=== PATIENT | male | born 1975 | race Caucasian/White ===

== ENCOUNTER 2020-06-14 15:00 | Emergency (ER) | payer MEDICAID ==
[~2020-06-14] VITALS: Ht 175.3 cm; Wt 145.0 kg
[2020-06-14] MEDS ORDERED: IBUP-1007 PO (16:25)
[2020-06-14] MEDS ORDERED: AMOX1TAB61 PO (16:25)
--- NOTE | 2020-06-14 16:27 | PHYS DOC ---
General Adult EDM: Chief Complaint: DENTAL PROBLEM HPI: HPI: Patient is a 44 year old male reports to the emergency department today complaining of left upper front dental pain for the past 2 days. Patient states that it had broken 2 years ago and he thought the nerve was and he had not really had any problems with it until 2 days ago. Patient states that he is making an appointment today to see a dentist. Patient denies smoking cigarettes, denies illicit drug use, denies alcohol use. Patient denies any other physical complaints or physical illnesses. Review of Systems: Review of Systems: 14 body systems of review of systems have been reviewed. See HPI for pertinent positives and negative responses, otherwise all other systems are negative, nonpertinent or noncontributory. Heart Score: Risk Factors: Risk Factors: DM, Current or recent (<one month) smoker, HTN, HLP, family history of CAD, obesity. Risk Scores: Score 0 - 3: 2.5% MACE over next 6 weeks - Discharge Home Score 4 - 6: 20.3% MACE over next 6 weeks - Admit for Clinical Observation Score 7 - 10: 72.7% MACE over next 6 weeks - Early Invasive Strategies Current Medications: Patient denies taking prescription or zmcl-krs-dckylol medications. Allergies: Allergies: Patient denies allergies to medications. Physical Exam: PE: Constitutional: Well developed, well nourished, no acute distress, non-toxic appearance. HENT: Normocephalic, atraumatic, bilateral external ears normal, oropharynx moist, no oral exudates, nose normal. Patient has multiple decayed teeth, poor dentition, marked dental caries, broken teeth. Patient's central incisor #9 broken at the gumline, pulp exposed, no purulent drainage from tooth, no erythema to surrounding gum structure. Eyes: PERRLA, EOMI, conjunctiva normal, no discharge. Neck: Normal range of motion, no tenderness, supple, no stridor. Cardiovascular:Heart rate regular rhythm, no murmur Lungs & Thorax: Bilateral breath sounds clear to auscultation Abdomen: Bowel sounds normal, soft, no tenderness, no masses, no pulsatile masses. Skin: Warm, dry, no erythema, no rash. Back: No tenderness, no CVA tenderness. Extremities: No tenderness, no cyanosis, no clubbing, ROM intact, no edema. Neurologic: Alert and oriented X 3, normal motor function, normal sensory function, no focal deficits noted. Psychologic: Affect normal, judgement normal, mood normal. EKG: EKG: [] Radiology/Procedures: Radiology/Procedures: [] Course & Med Decision Making: Course & Med Decision Making Pertinent Labs and Imaging studies reviewed. (See chart for details) 44-year-old male, vital signs reviewed, physical exam of complaint tooth central incisor #9 consistent with pulpitis. Discussed findings with patient, will start on Augmentin p.o. twice daily x10 days.patient given pain medicine in the emergency department related to 10/10 pain on a 1-10 pain scale, first antibiotics Augmentin p.o. Prescription for ibuprofen and Augmentin, patient gave verbal understanding of discharge instructions, follow-up with dentist soon, had no further questions or concerns, gave verbal understanding of return to emergency department concerns, discharged home without incident Impression: 1. Pulpitis 2 dental caries Steph Disclaimer: Steph Disclaimer: This electronic medical record was generated, in whole or in part, using a voice recognition dictation system. Departure Departure Impression: Primary Impression: Pulpitis Additional Impression: Dental caries Disposition: 01 DC HOME SELF CARE/HOMELESS Condition: GOOD Referrals: NO PCP (PCP) Patient Instructions: Dental Abscess Additional Instructions: Take prescribed medications as directed, follow-up with your dentist soon, return to the emergency department for worsening symptoms or other concerns. EMERGENCY DEPARTMENT GENERAL DISCHARGE INSTRUCTIONS Thank you for coming to [facility] Emergency Department (ED) today and trusting us with you care. We trust that you had a positive experience in our Emergency Department. If you wish to speak to the department management, you may call the Director at [phone]. YOUR FOLLOW UP INSTRUCTIONS ARE FOLLOWS: 1. Do you have a private Doctor? If you do not have a private doctor, please ask for a resource list of physicians or clinics that may be able to assist you with follow up care. 2. The Emergency Physicain has interpreted your x-rays. The X-Ray specialist will also review them. If there is a change in the findings, you will be notified in 48 hours when at all possible. 3. A lab test or culture has been done, your results will be reviewed and you will be notified if you need a change in treatment. ADDITIONAL INSTRUCTIONS AND INFORMATION: 1. Your care today has been supervised by a physician who is specially trained in emergency care. Many problems require more than one evaluation for a complete diagnosis and treatment. We recommend that you schedule your follow up appointment as recommended to ensure complete treatment of you illness or injury. If you are unable to obtain follow up care and continue to have a problem, or if your condition worsens, we recommend that you return to the ED. 2. We are not able to safely determine your condition over the phone nor are we able to give sound medical advice over the phone. For these safety reasons, if you call for medical advice we will ask you to come to the ED for further evaluation. 3. If you have any questions regarding these discharge instructions please call the ED at [phone]. SAFETY INFORMATION: In the interest of safety, wellness, and injury prevention; we encourage you to wear your sealbelt, if you smoke; quite smoking, and we encourage family to use a protective helmet for bicycling and other sporting events that present an increased risk for head injury. IF YOUR SYMPTOMS WORSEN OR NEW SYMPTOMS DEVELOP, OR YOU HAVE CONCERNS ABOUT YOUR CONDITION; OR IF YOUR CONDITION WORSENS WHILE YOU ARE WAITING FOR YOUR FOLLOW UP APPOINTMENT; EITHER CONTACT YOUR PRIMARY CARE DOCTOR, THE PHYSICIAN WHOSE NAME AND NUMBER YOU WERE GIVEN, OR RETURN TO THE ED IMMEDIATELY. Scripts Ibuprofen (IBUPROFEN) 600 Mg Tablet 600 MG PO PRN Q6HRS PRN for INFLAMMATION, #30 TAB 0 Refills Prov: ULISES STAUFFER CHIEF CATALYST OPERATOR 06/14/20 Amoxicillin/Potassium Clav (AUGMENTIN 875-125 TABLET) 1 Each Tablet 1 TAB PO BID for TOOTH INFECTION for 10 Days, #20 TAB 0 Refills Prov: ULISES STAUFFER CHIEF CATALYST OPERATOR 06/14/20 ULISES STAUFFER APRN Jun 14, 2020 16:27
[2020-06-14] MEDS ORDERED: HYDROcodone/APAP 5/325MG 1 TAB TABLET PO ONE (16:45)
[2020-06-14] MEDS ORDERED: AMOXICILLIN/K CLAV 875/125MG TABLET. PO ONE (16:45)
[2020-06-14] MEDS ORDERED: KETOROLAC 60 MG/2 ML VIAL. IM ONE (16:45)
[2020-06-14 16:55] VITALS: BP 148/98
[2020-06-15] MEDS ORDERED: CODE30TA PO (10:03)
== END 2020-06-14 16:58 | disposition home or self-care (01) ==
LOC: ER 15:00
DX: K02.9 Dental caries, unspecified (principal); K04.01 Reversible pulpitis; K08.89 Other specified disorders of teeth and supporting structures
CPT/HCPCS: 96372; 99283; J1885

== ENCOUNTER 2020-06-15 09:05 | Emergency (ER) | payer MEDICAID ==
[~2020-06-15] VITALS: Ht 175.3 cm; Wt 150.0 kg
[~2020-06-15 09:05] MED LIST: AMOX1TAB61 PO; IBUP-1007 PO
[2020-06-15 09:55] VITALS: BP 168/100
[2020-06-15] MEDS ORDERED: HYDROcodone/APAP 5/325MG 1 TAB TABLET PO ONE (10:00)
[2020-06-15] MEDS ORDERED: CODE30TA PO (10:03)
--- NOTE | 2020-06-15 10:04 | PHYS DOC ---
Past Medical History Past Medical History: Other Additional Past Medical Histor: ADD Past Surgical History: Appendectomy, Cholecystectomy Additional Past Surgical Histo: carpal tunnel, Smoking Status: Never Smoker Alcohol Use: Rarely General Adult EDM: Chief Complaint: DENTAL PROBLEM HPI: HPI: Patient is a 44 year old male who presents to the ED today complaining of moderate left upper gum dental pain, symptoms began 3 days ago. Patient describes the pain as sharp and constant. He states he has tried taking ibuprofen as prescribed with no improvement. He states he was in the ED yesterday for the same complaint and was given prescription for Augmentin which he has taken with no improvement. He states he has an appointment with the dentist tomorrow. Patient denies any fever or trismus. He is begging for pain medicine stating ibuprofen is not working he states he could not sleep last night and his mom wanted him to come to the ED to be examined Review of Systems: Review of Systems: Constitutional: Denies fever or chills. [] HENT: Reports left upper gum dental pain. Denies nasal congestion or sore throat. [] Musculoskeletal: Denies back pain or joint pain. [] Integument: Denies rash. [] Neurologic: Denies headache, focal weakness or sensory changes. [] Psychiatric: Denies depression or anxiety. [] Heart Score: Risk Factors: Risk Factors: DM, Current or recent (<one month) smoker, HTN, HLP, family history of CAD, obesity. Risk Scores: Score 0 - 3: 2.5% MACE over next 6 weeks - Discharge Home Score 4 - 6: 20.3% MACE over next 6 weeks - Admit for Clinical Observation Score 7 - 10: 72.7% MACE over next 6 weeks - Early Invasive Strategies Allergies: Allergies: Allergies Coded Allergies Type Severity Reaction Last Updated Verified No Known Drug Allergies 06/14/20 No Physical Exam: PE: Constitutional: Well developed, well nourished, no acute distress, non-toxic appearance. [] HENT: Normocephalic, atraumatic, bilateral external ears normal, oropharynx moist, no oral exudates, nose normal. [] Tooth #10 is broken and decayed. Tooth on the left upper gum the molars and premolars appear to have dental caries. There is slight erythema to the left upper gums. There is slight swelling to the left upper cheek. No drainable abscess noted. Skin: Warm, dry, no erythema, no rash. [] Back: No tenderness, no CVA tenderness. [] Extremities: No tenderness, no cyanosis, no clubbing, ROM intact, no edema. [] Neurologic: Alert and oriented X 3, normal motor function, normal sensory function, no focal deficits noted. [] Psychologic: Affect normal, judgement normal, mood normal. [] EKG: EKG: [] Radiology/Procedures: Radiology/Procedures: [] Course & Med Decision Making: Course & Med Decision Making Pertinent Labs and Imaging studies reviewed. (See chart for details) This is a 44-year-old male patient presenting to the ED today with a dental abscess, patient was in the ED yesterday and started on Augmentin. He has a dentist appointment tomorrow. He was given 2 hydrocodone tablets and discharged to home with Codeine to take with Ibuprofen and Tylenol 1319 patient called stating he can not fill his RX for codeine because no phar viry has it. I told him he can take Tylenol or Ibuprofen and has an appointment with his dentist tomorrow. He unfortunately stated yelling stating "why would you write me a fucking prescription that no fucking pharmacy can fill" and continued to use fowl language. I hanged up the phone. Steph Disclaimer: Steph Disclaimer: This electronic medical record was generated, in whole or in part, using a voice recognition dictation system. Departure Departure Impression: Primary Impression: Dental abscess Disposition: 01 DC HOME SELF CARE/HOMELESS Condition: STABLE Referrals: NO PCP (PCP) Follow-up with your dentist Patient Instructions: Dental Abscess Additional Instructions: You have a dental abscess. Please take the medicines prescribed as ordered. Complete antibiotics you have see your dentist tomorrow Scripts Codeine Sulfate (CODEINE SULFATE) 30 Mg Tablet 30 MG PO Q6-8HRS PRN for SEVERE PAIN 7-10, #6 TAB Prov: RADHA MARTINEZ APRN 06/15/20 RADHA MARTINEZ APRN Jun 15, 2020 10:04
== END 2020-06-15 10:29 | disposition home or self-care (01) ==
LOC: ER 09:05
DX: K04.7 Periapical abscess without sinus (principal); R60.0 Localized edema; L53.9 Erythematous condition, unspecified; Z90.49 Acquired absence of other specified parts of digestive tract; Z90.89 Acquired absence of other organs; Z98.890 Other specified postprocedural states
CPT/HCPCS: 99283

== ENCOUNTER 2020-10-26 09:35 | Emergency (ER) | payer MEDICAID ==
[~2020-10-26] VITALS: Ht 175.3 cm; Wt 150.0 kg
[~2020-10-26 09:35] MED LIST changes: +CODE30TA PO
[2020-10-26] MEDS ORDERED: NOREPINEPHRINE VIAL 8 MG in IV DEXTROSE 5% 250 ML IV PRN (10:00)
[2020-10-26] MEDS ORDERED: IV NORMAL SALINE 500ML BAG 500 ML IV PRN (10:00)
--- NOTE | 2020-10-26 10:06 | ED.ADGEN ---
Past Medical History Past Medical History: No Pertinent History Additional Past Medical Histor: ADD Past Surgical History: No Surgical History Additional Past Surgical Histo: carpal tunnel, Smoking Status: Never Smoker Alcohol Use: None General Adult EDM: Chief Complaint: MULTIPLE COMPLAINTS HPI: HPI: Patient is a 45-year-old male who arrives ambulatory to the emergency department complaining of progressive shortness of air over the past 2 to 3 days. Patient reports during this time he has become increasing more short of breath with any kind of activity. Patient states he has found it difficult to sleep and states he has the sensation his airway is closing at night. Patient started using wrea-ydw-yuvvrca medications thinking it might help him however he has not a chieved any relief. Patient also reports to some chest heaviness that has accompanied his shortness of air during this time. He denies any fever. He further denies any coughing and states he has not been in close contact with anybody who has been ill. Furthermore he denies having taken the coronavirus vaccine and does not have any known cardiac or respiratory illnesses. He is awake, alert and uncomfortable appearing Review of Systems: Review of Systems: Constitutional: Denies fever or chills. [] Eyes: Denies change in visual acuity. [] HENT: Denies nasal congestion or sore throat. [] Respiratory: Reports shortness of air with exertion and at rest. Denies cough. [] Cardiovascular: Reports chest discomfort. [] GI: Denies abdominal pain, nausea, vomiting, bloody stools or diarrhea. [] : Denies dysuria. [] Musculoskeletal: Denies back pain or joint pain. [] Integument: Denies rash. [] Neurologic: Denies headache, focal weakness or sensory changes. [] Endocrine: Denies polyuria or polydipsia. [] Lymphatic: Denies swollen glands. [] Psychiatric: Denies depression or anxiety. [] Current Medications: Current Medications Medications (Trade) Dose Ordered Sig/Pradeep Start Time Stop Time Status Last Admin Dose Admin Dobutamine HCl/ Dextrose 250 ml @ 0 mls/hr CONT PRN 10/26/20 10:00 10/26/20 14:04 DC Info (CONTRAST GIVEN -- Rx MONITORING) 1 each PRN DAILY PRN 10/26/20 12:30 10/26/20 14:04 DC Iohexol (Omnipaque 350 Mg/ml) 100 ml 1X ONCE 10/26/20 12:30 10/26/20 12:31 DC 10/26/20 12:29 100 ML Levofloxacin/ Dextrose 150 ml @ 100 mls/hr Q24H 10/26/20 10:00 10/26/20 14:04 DC 10/26/20 10:54 100 MLS/HR Norepinephrine Bitartrate 8 mg/ Dextrose 258 ml @ 0 mls/hr CONT PRN 10/26/20 10:00 10/26/20 14:04 DC Sodium Chloride 500 ml @ 1,000 mls/hr PRN Q30MIN PRN 10/26/20 10:00 10/26/20 14:04 DC 10/26/20 10:54 1,000 MLS/HR Allergies: Allergies: Allergies Coded Allergies Type Severity Reaction Last Updated Verified No Known Drug Allergies 06/14/20 No Physical Exam: PE: Constitutional: Obese and uncomfortable appearing. Well developed, well nourished, non-toxic appearance. [] HENT: Normocephalic, atraumatic, bilateral external ears normal, oropharynx moist, no oral exudates, nose normal. [] Eyes: PERRLA, EOMI, conjunctiva normal, no discharge. [] Neck: Normal range of motion, no tenderness, supple, no stridor. [] Cardiovascular:Heart rate regular rhythm, no murmur [] Lungs & Thorax: Breathing is shallow and tachypneic. Bilateral breath sounds are otherwise clear to auscultation [] Abdomen: Bowel sounds normal, soft, no tenderness, no masses, no pulsatile masses. [] Skin: Warm, dry, no erythema, no rash. [] Back: No tenderness, no CVA tenderness. [] Extremities: No tenderness, no cyanosis, no clubbing, ROM intact, no edema. [] Neurologic: Alert and oriented X 3, normal motor function, normal sensory function, no focal deficits noted. [] Psychologic: Affect normal, judgement normal, mood normal. [] Current Patient Data: Labs: Laboratory Tests Test 10/26/20 09:44 10/26/20 10:00 10/26/20 10:10 10/26/20 10:32 Sodium Level 140 mmol/L (136-145) Potassium Level 4.2 mmol/L (3.5-5.1) Chloride Level 104 mmol/L (98-107) Carbon Dioxide Level 25 mmol/L (21-32) Anion Gap 11 (6-14) Blood Urea Nitrogen 10 mg/dL (8-26) Creatinine 0.7 mg/dL (0.7-1.3) Estimated GFR (Cockcroft-Gault) 122.0 Glucose Level 121 mg/dL (70-99) H Calcium Level 8.7 mg/dL (8.5-10.1) Total Bilirubin 0.4 mg/dL (0.2-1.0) Direct Bilirubin 0.1 mg/dL (0.0-0.2) Aspartate Amino Transferase (AST) 64 U/L (15-37) H Alanine Aminotransferase (ALT) 98 U/L (16-63) H Alkaline Phosphatase 85 U/L (46-116) Troponin I Quantitative < 0.017 ng/mL (0.000-0.055) IJ-Bnv-Q-Type Natriuretic Peptide 14 pg/mL (0-124) Total Protein 7.5 g/dL (6.4-8.2) Albumin 3.8 g/dL (3.4-5.0) Procalcitonin < 0.10 ng/mL (0.00-0.10) White Blood Count 9.3 x10^3/uL (4.0-11.0) Red Blood Count 4.80 x10^6/uL (4.30-5.70) Hemoglobin 14.1 g/dL (13.0-17.5) Hematocrit 41.8 % (39.0-53.0) Mean Corpuscular Volume 87 fL (79-100) Mean Corpuscular Hemoglobin 29 pg (25-35) Mean Corpuscular Hemoglobin Concent 34 g/dL (31-37) Red Cell Distribution Width 15.2 % (11.5-14.5) H Platelet Count 354 x10^3/uL (140-400) Neutrophils (%) (Auto) 55 % (31-73) Lymphocytes (%) (Auto) 33 % (24-48) Monocytes (%) (Auto) 10 % (0-9) H Eosinophils (%) (Auto) 1 % (0-3) Basophils (%) (Auto) 1 % (0-3) Neutrophils # (Auto) 5.1 x10^3/uL (1.8-7.7) Lymphocytes # (Auto) 3.0 x10^3/uL (1.0-4.8) Monocytes # (Auto) 0.9 x10^3/uL (0.0-1.1) Eosinophils # (Auto) 0.1 x10^3/uL (0.0-0.7) Basophils # (Auto) 0.1 x10^3/uL (0.0-0.2) Lactic Acid Level 1.1 mmol/L (0.4-2.0) Laboratory Tests 10/26/20 10:10 Laboratory Tests 10/26/20 09:44 Vital Signs: Vital Signs Date Time Temp Pulse Resp B/P (MAP) Pulse Ox O2 Delivery O2 Flow Rate FiO2 10/26/20 09:40 98.6 101 18 188/91 (123) 96 Room Air 98.6 EKG: EKG: [] EKG was obtained at 9:49 AM and revealed a normal sinus rhythm with a ventricular rate of 9 9 bpm. There is no acute ST/T wave changes to denote ischemia. Heart Score: C/O Chest Pain: Yes HEART Score for Chest Pain: HEART Score for Chest Pain Response (Comments) Value History Slighlty/Non-Suspicious 0 ECG Normal 0 Age >45 - < 65 1 Risk Factors 1 or 2 Risk Factors 1 Troponin < Normal Limit 0 Total 2 Risk Factors: Risk Factors: DM, Current or recent (<one month) smoker, HTN, HLP, family history of CAD, obesity. Risk Scores: Score 0 - 3: 2.5% MACE over next 6 weeks - Discharge Home Score 4 - 6: 20.3% MACE over next 6 weeks - Admit for Clinical Observation Score 7 - 10: 72.7% MACE over next 6 weeks - Early Invasive Strategies Radiology/Procedures: Radiology/Procedures: [] Impression: [facility] [address] [place] [address] IMAGING REPORT Signed PATIENT: GILBERTO MERCER GACCOUNT: [id number] : 1975 LOCATION: ER AGE: 45 SEX: M EXAM STATUS: REG ER ORD. PHYSICIAN: JEROMY SILVESTRE DO REASON: Shortness of air PROCEDURE: CHEST AP ONLY EXAMINATION: Chest radiograph. VIEWS: Single AP view COMPARISON: None INDICATION: Shortness of breath FINDINGS: Normal cardiomediastinal silhouette. No focal consolidation. No pleural effusion or pneumothorax. No acute osseous process. IMPRESSION: No acute cardiopulmonary process. Electronically signed by: Syed Chiu MD (10/26/2020 10:35 AM) [id number] DICTATED and SIGNED BY: SYED CHIU MD DATE: 10/26/20 [id number] [facility] [address] [place] [address] IMAGING REPORT Signed PATIENT: GILBERTO MERCER GACCOUNT: [id number] : 1975 LOCATION: ER AGE: 45 SEX: M EXAM STATUS: REG ER ORD. PHYSICIAN: JEROMY SILVESTRE DO REASON: short of air PROCEDURE: CT ANGIOGRAPHY CHEST EXAM: CT angiography of the chest with intravenous contrast. HISTORY: Shortness of air. TECHNIQUE: Computed tomographic images of the chest were obtained following the administration of intravenous contrast according to angiography protocol. Multiplanar reformatting was performed and three dimensional maximum intensity projection images were obtained. *One or more of the following individualized dose reduction techniques were uti lized for this examination: 1. Automated exposure control. 2. Adjustment of the mA and/or kV according to patient size. 3. Use of iterative reconstruction technique. COMPARISON: None. FINDINGS: The exam is limited for pulmonary due to suboptimal contrast opacification of the pulmonary arteries. No central pulmonary embolus is seen. The possibility of a distal embolism is not excluded on this exam. The heart is normal in size. The aorta is normal in caliber. There is a common origin of the right innominate and left common carotid arteries, a normal aortic arch branching variant. There is no lymphadenopathy. There is no pneumothorax or pleural effusion. There is no infiltrate. There is bilateral basilar and posterior dependent atelectasis. There are few tiny calcified granulomas. No suspicious noncalcified nodule is seen. There is hepatosplenomegaly. There is no suspicious or acute osseous finding. There are multiple thoracic endplate Schmorl's nodes superimposed on endplate remodeling. IMPRESSION: 1. Significantly limited exam for pulmonary embolism due to suboptimal contrast opacification of the pulmonary arteries. No central embolism is seen. 2. Bilateral basilar and posterior dependent atelectasis. 3. Hepatosplenomegaly. Electronically signed by: Dominique Joy MD (10/26/2020 12:47 PM) [id number] DICTATED and SIGNED BY: DOMINIQUE JOY MD DATE: 10/26/20 [id number] 0 Course & Med Decision Making: Course & Med Decision Making Pertinent Labs and Imaging studies reviewed. (See chart for details) The patient remains awake, alert and does appear to be much more relaxed since his arrival. After 3 days of symptoms I do not believe the patient suffers from any kind of acute cardiac condition. It is possible the patient may suffer from the effects of coronavirus however he is unaware of any known sick contacts. I have advised that he adhere to the protocol set forth while waiting for the results of his coronavirus testing. Moreover I advised that he attempt to lose weight and contact the family physician of his choice for ongoing blood pressure management. The patient states he will do that upon discharge. Should he have any ongoing problems with respect to his blood pressure, shortness of air or the development of new chest pain, advised him to return. The patient understands and has agreed to do so. He is nontoxic-appearing and stable for discharge Dragon Disclaimer: Steph Disclaimer: This electronic medical record was generated, in whole or in part, using a voice recognition dictation system. Departure Departure Impression: Primary Impression: Respiratory distress Additional Impressions: Person under investigation for COVID-19 Morbid obesity Elevated blood pressure reading Disposition: HOME / SELF CARE / HOMELESS Condition: STABLE Referrals: NO PCP (PCP) Patient Instructions: Managing Your High Blood Pressure, Shortness of Breath, Upper Respiratory Infection, Adult Scripts Albuterol Sulfate (Proventil Hfa) 6.7 Gm Hfa.aer.ad 1 PUFF INH PRN Q6HRS PRN for SHORTNESS OF BREATH for 5 Days, EACH Prov: JEROMY SILVESTRE DO 10/26/20 Prednisone (PREDNISONE) 50 Mg Tablet 1 TAB PO DAILY for 5 Days, #5 TAB Prov: JEROMY SILVESTRE DO 10/26/20 Problem Qualifiers JEROMY SILVESTRE DO October 26, 2020 10:06
--- NOTE | 2020-10-26 10:37 | RAD ---
EXAMINATION: Chest radiograph. VIEWS: Single AP view COMPARISON: None INDICATION: Shortness of breath FINDINGS: Normal cardiomediastinal silhouette. No focal consolidation. No pleural effusion or pneumothorax. No acute osseous process. IMPRESSION: No acute cardiopulmonary process. Electronically signed by: Pio Chiu MD (10/26/2020 10:35 AM) [id number]
[2020-10-26] MEDS ORDERED: IOHEXOL 350 MG/ML 100 ML VIAL. IV ONE (12:30)
[2020-10-26] MEDS ORDERED: CONTRAST GIVEN. MC PRN (12:30)
[2020-10-26 12:41] LABS: ALBUMIN 3.8 g/dL (3.4-5.0); DIRECT BILIRUBIN 0.1 mg/dL (0.0-0.2); TOTAL BILIRUBIN 0.4 mg/dL (0.2-1.0); TOTAL PROTEIN 7.5 g/dL (6.4-8.2)
--- NOTE | 2020-10-26 12:50 | RAD ---
EXAM: CT angiography of the chest with intravenous contrast. HISTORY: Shortness of air. TECHNIQUE: Computed tomographic images of the chest were obtained following the administration of int ravenous contrast according to angiography protocol. Multiplanar reformatting was performed and three dimensional maximum intensity projection images were obtained. *One or more of the following individualized dose reduction techniques were utilized for this examina tion: 1. Automated exposure control. 2. Adjustment of the mA and/or kV according to patient size. 3. Use of iterative reconstruction technique. COMPARISON: None. FINDINGS: The exam is limited for pulmonary due to suboptimal contrast opacification of the pulmonary arteries. No central pulmonary embolus is seen. The possibility of a distal embolism is not excluded on this exam. The heart is normal in size. The aorta is normal in caliber. There is a common origin of the right innominate and left common carotid arteries, a normal aortic arch branching variant. The re is no lymphadenopathy. There is no pneumothorax or pleural effusion. There is no infiltrate. There is bilateral basilar and posterior dependent atelectasis. There are few tiny calcified granulomas. No suspicious noncalcified nodule is seen. There is hepatosplenomegaly. There is no suspicious or acute osseous finding. There a re multiple thoracic endplate Schmorl's nodes superimposed on endplate remodeling. IMPRESSION: 1. Significantly limited exam for pulmonary embolism due to suboptimal contrast opacification of the pulmonary arteries. No central embolism is seen. 2. Bilateral basilar and posterior dependent atelectasis. 3. Hepatosplenomegaly. Electronically signed by: Dominique Polanco MD (10/26/2020 12:47 PM) [id number]
[2020-10-26 13:32] LABS: BASO # 0.1 x10^3/uL (0.0-0.2); BASO % 1 % (0-3); EOS # 0.1 x10^3/uL (0.0-0.7); EOS % 1 % (0-3); HEMATOCRIT 41.8 % (39.0-53.0); HEMOGLOBIN 14.1 g/dL (13.0-17.5); LYMPH % 33 % (24-48); MEAN CORPUSCULAR HEMOGLOBIN 29 pg (25-35); MEAN CORPUSCULAR HGB CONC 34 g/dL (31-37); MEAN CORPUSCULAR VOLUME 87 fL (79-100); MONO # 0.9 x10^3/uL (0.0-1.1); MONO % 10 % (0-9); NEUT # 5.1 x10^3/uL (1.8-7.7); NEUT % 55 % (31-73); PLATELET COUNT 354 x10^3/uL (140-400); RED CELL DISTRIBUTION WIDTH 15.2 % (11.5-14.5); WHITE BLOOD COUNT 9.3 x10^3/uL (4.0-11.0)
[2020-10-26 13:43] LABS: CALCIUM 8.7 mg/dL (8.5-10.1); CREATININE 0.7 mg/dL (0.7-1.3); POTASSIUM 4.2 mmol/L (3.5-5.1)
[2020-10-26] MEDS ORDERED: PRED50TA PO (13:44)
[2020-10-26] MEDS ORDERED: PROVENTIL HFA6.7 G2 INH (13:44)
[2020-10-26 14:00] VITALS: BP 153/89
--- NOTE | 2020-10-27 05:29 | EKG ---
[facility] [address] [place] [address] Test Date: 2020-10-26 Test Time: 09:49:19 Pat Name: GILBERTO MERCER Department: Room: Gender: M [employer]: : 1975 Requested By: ROXY MORGAN Order Number: [id number] Reading MD: Measurements Intervals [place] Rate: 99 P: 26 OR: 164 QRS: 17 QRSD: 88 T: 38 QT: 354 QTc: 460 Interpretive Statements SINUS RHYTHM NORMAL ECG RI6.01 No previous ECG available for comparison
--- NOTE | 2020-10-27 10:06 | NUR ---
IP: Informed pt of negative covid test. Pt verbalized understanding.
== END 2020-10-26 14:00 | disposition home or self-care (01) ==
LOC: ER 09:35
DX: R06.03 Acute respiratory distress (principal); Z20.822 Contact with and (suspected) exposure to COVID-19; E66.01 Morbid (severe) obesity due to excess calories; Z68.42 Body mass index [BMI] 45.0-49.9, adult; R03.0 Elevated blood-pressure reading, without diagnosis of hypertension
CPT/HCPCS: 36415; 71045; 71275; 80048; 80076; 83605; 83880; 84145; 84484; 85025; 96365; 99285; J1956; J7040; Q9967; U0003; U0005; 93005

== ENCOUNTER 2021-10-19 15:24 | Emergency (ER) | payer MEDICAID ==
[~2021-10-19] VITALS: Ht 172.7 cm; Wt 152.6 kg
[~2021-10-19 15:24] MED LIST changes: +PRED50TA PO; +PROVENTIL HFA6.7 G2 INH
[2021-10-19] MEDS ORDERED: TRIAMCINOLONE PRES.FREE 40 MG/ML VIAL. IM ONE (15:45)
[2021-10-19] MEDS ORDERED: KETOROLAC 60 MG/2 ML VIAL. IM ONE (15:45)
--- NOTE | 2021-10-19 16:39 | RAD ---
Exam: CT cervical spine without contrast INDICATION: Severe cervical spine, pain TECHNIQUE: Sequential axial images through the cervical spine obtained without IV contrast. Sagittal and coronal reformatted images were reconstructed from the axial data and reviewed. Exposure: One or more of the following in the visualized dose reduction techniques were utilized for this examination: 1. Automated exposure control 2. Adjustment of the MA and/or KV according to patient size 3. Use of iterative of reconstructive technique Comparisons: None FINDINGS: Visualized intracranial structures are unremarkable. Vertebral body heights and alignment are well-maintained. Fracture through the cervical spine is not identified. There is degenerative disc disease in cervical spine greatest at C5-C6 and C6-C7. Mild bilateral face t arthropathy is also noted in the cervical spine. Visualized paraspinal soft tissues are unremarkable. IMPRESSION: Mild spondylotic change in cervical spine as described above. No acute traumatic injury identified. Electronically signed by: Otto Chambers MD (10/19/2021 4:37 PM) [facility]
[2021-10-19 16:45] VITALS: BP 156/96
[2021-10-19] MEDS ORDERED: CYCL10TA19 PO (17:26)
[2021-10-19] MEDS ORDERED: PRED20TA PO (17:26)
[2021-10-19] MEDS ORDERED: IBUP-1007 PO (17:26)
--- NOTE | 2021-10-19 17:26 | PHYS DOC ---
Past Medical History Past Medical History: No Pertinent History Additional Past Medical Histor: ADD Past Surgical History: No Surgical History Additional Past Surgical Histo: carpal tunnel, Smoking Status: Never Smoker Alcohol Use: None General Adult EDM: Chief Complaint: NECK PAIN HPI: HPI: Patient is a 45-year-old male presents to the emergency department complaining of severe neck pain for the past month. Patient reports seeing his primary care provider Dr. Martni at the onset of pain and was placed on Voltaren gel cream, states it has not helped with his pain. Patient reports it seems to be getting worse. Patient denies actual injury to his neck, reporting that he woke up 1 morning with severe neck pain. Patient denies nausea, vomiting, diarrhea, denies recent fever or chills, reports receiving the COVID-19 virus vaccination series, patient denies numbness or tingling down his extremities at this time however reports he does experience intermittent numbness and tingling to his left or right upper extremities. Patient reports he took 1 g of Tylenol this morning at approximately 7:30 AM with relief of pain from a 10 out of 10 down to a 9 out of 10. Patient reports taking home medications of Vyvanse, metformin, a cholesterol medication, and a new injection insulin medication that he does not recall the name of at this time. Patient denies other physical complaints or physical concerns. Review of Systems: Review of Systems: 14 body systems of review of systems have been reviewed. See HPI for pertinent positives and negative responses, otherwise all other systems are negative, nonpertinent or noncontributory. Constitutional: Negative except as outlined in HPI above. Skin: Negative except as outlined in HPI above. Eyes: Negative except as outlined in HPI above. HENT: Negative except as outlined in HPI above. Respiratory: Negative except as outlined in HPI above. Cardiovascular: Negative except as outlined in HPI above. GI: Negative except as outlined in HPI above. : Negative except as outlined in HPI above. Musculoskeletal: Negative except as outlined in HPI above. Integument: Negative except as outlined in HPI above. Neurologic: Negative except as outlined in HPI above. Endocrine: Negative except as outlined in HPI above. Lymphatic: Negative except as outlined in HPI above. Psychiatric: Negative except as outlined in HPI above. Heart Score: C/O Chest Pain: No Risk Factors: Risk Factors: DM, Current or recent (<one month) smoker, HTN, HLP, family history of CAD, obesity. Risk Scores: Score 0 - 3: 2.5% MACE over next 6 weeks - Discharge Home Score 4 - 6: 20.3% MACE over next 6 weeks - Admit for Clinical Observation Score 7 - 10: 72.7% MACE over next 6 weeks - Early Invasive Strategies Current Medications: Current Medications Medications (Trade) Dose Ordered Sig/Pradeep Start Time Stop Time Status Last Admin Dose Admin Ketorolac Tromethamine (Toradol Im) 60 mg 1X ONCE 10/19/21 15:45 10/19/21 15:46 DC 10/19/21 16:22 60 MG Triamcinolone Acetonide (Kenalog-40) 40 mg 1X ONCE 10/19/21 15:45 10/19/21 15:46 DC 10/19/21 16:21 40 MG Allergies: Allergies: Allergies Coded Allergies Type Severity Reaction Last Updated Verified No Known Drug Allergies 06/14/20 No Physical Exam: PE: Constitutional: Well developed, well nourished, no acute distress, non-toxic appearance. 45-year-old male in no apparent distress. HENT: Normocephalic, atraumatic. No lymphadenopathy of the head or neck appreciated. Bilateral TMs intact and within normal limits. Eyes: Conjunctiva normal, no discharge. Neck: Normal range of motion, no stridor. Pain to palpation at C6-C7 area, there are no step-offs, no crepitus appreciated, no meningismus signs, no nuchal rigidity. Cardiovascular: No cyanosis appreciated, distal cap refill less than 2 seconds. Lungs & Thorax: Patient is in no respiratory distress, no audible adventitious lung sounds appreciated. Abdomen: Nontender, no abnormalities noted. Skin: Warm, dry, no erythema, no rash. Back: No tenderness, no deformities. Extremities: No tenderness, no cyanosis, no clubbing, ROM intact, no edema. Neurologic: Alert and oriented X 3, normal motor function, normal sensory function, no focal deficits noted. Psychologic: Affect normal, judgement normal, mood normal. Current Patient Data: Vital Signs: Vital Signs Date Time Temp Pulse Resp B/P (MAP) Pulse Ox O2 Delivery O2 Flow Rate FiO2 10/19/21 15:25 98.1 79 18 160/112 (128) 96 Room Air 98.1 EKG: EKG: [] Radiology/Procedures: Radiology/Procedures: PROCEDURE: CT CERVICAL SPINE WO CONTRAST Exam: CT cervical spine without contrast INDICATION: Severe cervical spine, pain TECHNIQUE: Sequential axial images through the cervical spine obtained without IV contrast. Sagittal and coronal reformatted images were reconstructed from the axial data and reviewed. Exposure: One or more of the following in the visualized dose reduction techniques were utilized for this examination: 1. Automated exposure control 2. Adjustment of the MA and/or KV according to patient size 3. Use of iterative of reconstructive technique Comparisons: None FINDINGS: Visualized intracranial structures are unremarkable. Vertebral body heights and alignment are well-maintained. Fracture through the cervical spine is not identified. There is degenerative disc disease in cervical spine greatest at C5-C6 and C6- C7. Mild bilateral facet arthropathy is also noted in the cervical spine. Visualized paraspinal soft tissues are unremarkable. IMPRESSION: Mild spondylotic change in cervical spine as described above. No acute traumatic injury identified. Electronically signed by: Otto Chambers MD (10/19/2021 4:37 PM) [facility] Course & Med Decision Making: Course & Med Decision Making Pertinent Labs and Imaging studies reviewed. (See chart for details) 45-year-old male, vital signs reviewed, presents to the emergency department concerning severe neck pain for the past month. Physical examination concerning for cervical radiculopathy versus other cervical spine process. Will order CT scan of C-spine, NSAID pain medication, intramuscular steroid medication. CT scan of C-spine reveals degenerative changes of C5-C6, C6 - C7. No acute fractures. Upon reexamination of patient, patient reports some pain relief with medications given, discussed with patient degenerative changes, causes of cervical spine radiculopathy, follow-up with pain management, primary care physician soon for ongoing symptoms, neurosurgery for further evaluation and follow-up. Discussed home medication use, cervical soft collar use. Rest. Return to ER precautions and concerns were discussed, patient gave verbal understanding and is amenable to ED discharge planning Discussed with the patient all findings and diagnostic testing as well as the need to follow-up with their primary care provider for further evaluation and treatment or return to the ED if any new or worsening symptoms. Strict return precautions were also discussed at length, the patient voiced understanding and agreement with the discharge planning. The patient was nontoxic in appearance, in no apparent distress, and hemodynamically stable at the time of disposition. Dragon Disclaimer: Dragon Disclaimer: This electronic medical record was generated, in whole or in part, using a voice recognition dictation system. Departure Departure Impression: Primary Impression: Cervical radiculopathy Disposition: HOME / SELF CARE / HOMELESS Condition: GOOD Referrals: UNKNOWN PCP NAME (PCP) ROSALINDA GARCIA MD, BRIAN N MD Patient Instructions: Cervical Radiculopathy Additional Instructions: You were seen today in the emergency department for pain to your neck. As we discussed, your CT scan did show some degenerative changes at the area of C5, C6, and C7. As we discussed, I am treating you with a muscle relaxer, ibuprofen for pain, prednisone therapy, and a cervical soft collar to wear for support, please rest at home to help relieve symptoms. Please do not operate heavy machinery or perform dangerous activities while taking a muscle relaxer. I have provided a neurosurgeon to follow-up with for further evaluation and treatment, a pain management physician for ongoing pain management. Please follow-up with your primary care physician Dr. Carmenza pat to discuss your ER visit today and recommended follow-up physicians. Thank you for visiting our Emergency Department. It was a pleasure taking care of you today in the emergency department and we appreciate you trusting us with your care. If any additional problems come up don't hesitate to return to visit us. Please follow up with your primary care provider so they can plan additional care if needed and know about the problem that you had. If symptoms worsen come back to the Emergency Department. Any concerning symptoms that start such as chest pain, shortness of air, weakness or numbness on one side of the body, running high fevers or any other concerning symptoms return to the ER. Scripts Prednisone (PREDNISONE) 20 Mg Tablet 1 TAB PO DAILY, #15 TAB 0 Refills Take 2 tablets each day on days 1 through 5, then reduce to 1 tablet each day on days 6 through 10. Prov: ULISES STAUFFER APRN 10/19/21 Ibuprofen (IBUPROFEN) 600 Mg Tablet 600 MG PO PRN Q6HRS PRN for INFLAMMATION, #30 TAB 0 Refills Prov: ULISES STAUFFER APRN 10/19/21 Cyclobenzaprine Hcl (CYCLOBENZAPRINE HCL) 10 Mg Tablet 10 MG PO TID, #15 TAB 0 Refills Prov: ULISES STAUFFER APRN 10/19/21 ULISES STAUFFER APRN October 19, 2021 17:26
== END 2021-10-19 16:40 | disposition home or self-care (01) ==
LOC: ER 15:24
DX: M54.12 Radiculopathy, cervical region (principal)
CPT/HCPCS: 72125; 96372; 99284; J1885; J3301